=== PATIENT | male | born 1985 | race Caucasian/White ===

== ENCOUNTER 2017-04-16 20:44 | Emergency (ER) | payer OTHER ==
[~2017-04-16] VITALS: Ht 190.5 cm; Wt 117.9 kg
[~2017-04-16 20:44] MED LIST: ANAPROX DS550 MG PO; AUGMENTIN 500 M1 TAB PO; BIAXIN500 MG PO; CLINDAMYCIN150 MG PO; COMBIVENT1 ARO IH; CORDROL20 MG PO; DARVOCET N 1001 TAB PO; DAYPRO600 M1 PO; DOXYCYCLINE MO100 MG PO; FIORICET 325 MG1 TAB PO; FLEXERIL10 MG PO; HYDROCODONE BIT1 T11 PO; HYDRODIURIL25 MG PO; MEDROL DOSEPAK4 MG PO; MOTRIN800 MG PO; NAPROSYN500 MG PO; NKHM; NORCO 325 MG-51 TAB PO; PHENERGAN W/DM120 ML PO; PROVENTIL0.09 MG/AC IH; ROBAXIN750 MG PO; ROBITUSSIN AC 10 MG/ PO; SUDAFED60 MG PO; TRAMADOL HCL50 MG PO; ULTRAM50 MG PO; VIBRAMYCIN100 MG PO; VICODIN 5/500 505 MG PO; ZANTAC150 MG PO
[2017-04-16 20:52] VITALS: BP 150/95
[2017-04-16] MEDS ORDERED: HYDROCODONE BIT1 T11 PO (22:29)
[2017-04-16] MEDS ORDERED: CEPHALEXIN500 M1 PO (22:29)
== END 2017-04-16 22:47 | disposition home or self-care (01) ==
LOC: ED 20:44
DX: T25.621A Corrosion of second degree of right foot, initial encounter (principal); Z23 Encounter for immunization; F17.200 Nicotine dependence, unspecified, uncomplicated; Z88.6 Allergy status to analgesic agent; Y92.9 Unspecified place or not applicable; Y93.89 Activity, other specified; Y92.89 Other specified places as the place of occurrence of the external cause; Y99.8 Other external cause status

== ENCOUNTER → 2017-04-21 | Outpatient (CLI) | payer OTHER ==
[~2017-04-21] MED LIST changes: +CEPHALEXIN500 M1 PO
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
== END | disposition home or self-care (01) ==
LOC: WOUNDCARE 00:21
DX: T25.221D Burn of second degree of right foot, subsequent encounter (principal); F17.210 Nicotine dependence, cigarettes, uncomplicated; X08.8XXD Exposure to other specified smoke, fire and flames, subsequent encounter

== ENCOUNTER → 2017-04-28 | Outpatient (CLI) | payer OTHER ==
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
== END | disposition home or self-care (01) ==
LOC: WOUNDCARE 00:57
DX: T25.221D Burn of second degree of right foot, subsequent encounter (principal); F17.200 Nicotine dependence, unspecified, uncomplicated; T65.891D Toxic effect of other specified substances, accidental (unintentional), subsequent encounter

== ENCOUNTER → 2017-05-05 | Outpatient (CLI) | payer OTHER ==
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
== END ==
LOC: WOUNDCARE 03:42
DX: T25.221D Burn of second degree of right foot, subsequent encounter (principal); L84 Corns and callosities; X08.8XXD Exposure to other specified smoke, fire and flames, subsequent encounter

== ENCOUNTER → 2017-05-14 | Outpatient (CLI) | payer OTHER ==
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
== END | disposition home or self-care (01) ==
LOC: WOUNDCARE 01:42
DX: T25.221D Burn of second degree of right foot, subsequent encounter (principal); T31.0 Burns involving less than 10% of body surface; X08.8XXD Exposure to other specified smoke, fire and flames, subsequent encounter

== ENCOUNTER 2017-06-30 17:33 | Emergency (ER) | payer OTHER ==
[~2017-06-30] VITALS: Ht 190.5 cm; Wt 117.9 kg
[2017-06-30 17:40] VITALS: BP 159/89
== END 2017-06-30 18:40 | disposition home or self-care (01) ==
LOC: ED 17:33
DX: S80.11XA Contusion of right lower leg, initial encounter (principal); F17.200 Nicotine dependence, unspecified, uncomplicated; Z88.6 Allergy status to analgesic agent; X58.XXXA Exposure to other specified factors, initial encounter; Y93.89 Activity, other specified; Y92.89 Other specified places as the place of occurrence of the external cause; Y99.9 Unspecified external cause status

== ENCOUNTER 2017-10-31 19:23 | Emergency (ER) | payer OTHER ==
[~2017-10-31] VITALS: Ht 190.5 cm; Wt 127.0 kg
[2017-10-31 20:39] LABS: BASO # 0.1 10*3/uL (0.0-0.1); BASO % 0.5 % (0.0-1.0); EOS # 0.5 10*3/uL (0.0-0.4); EOS % 4.8 % (1.0-4.0); HEMATOCRIT 46.1 % (42.0-52.0); HEMOGLOBIN 15.6 g/dl (14.0-18.0); LYMPH # 2.6 10*3/uL (1.3-4.4); LYMPH % 26.4 % (27.0-41.0); MEAN CELL VOLUME 89.3 fl (80.0-94.0); MEAN CORPUSCULAR HGB 30.2 pg (27.0-31.0); MEAN CORPUSCULAR HGB CONC 33.8 g/dl (33.0-37.0); MEAN PLATELET VOLUME 10.1 fl (9.6-12.3); MONO % 10.1 % (3.0-9.0); NEUT # 5.6 10*3/uL (2.3-7.9); NEUT % 57.9 % (47.0-73.0); PLATELET COUNT AUTOMATED 226 10*3/uL (130-400); RED BLOOD COUNT 5.16 10*6/uL (4.50-5.90); RED CELL DISTRI WIDTH 12.9 % (0-14.5); WHITE BLOOD COUNT 9.7 10*3/uL (4.8-10.8)
[2017-10-31 20:56] LABS: ALBUMIN 3.6 gm/dl (3.1-4.5); ALKALINE PHOSPHATASE 60 U/L (45-117); BUN 9 mg/dl (7-24); CHLORIDE 105 mmol/L (98-107); CREATININE 0.87 mg/dL (0.70-1.30); POTASSIUM 4.1 mmol/L (3.5-5.1); SGOT/AST 22 IU/L (3-35); SGPT/ALT 36 U/L (12-78); SODIUM 140 mmol/L (136-145); TOTAL PROTEIN 7.2 gm/dL (6.4-8.2)
[2017-10-31 20:57] LABS: BILIRUBIN NEGATIVE (NEGATIVE); BLOOD NEGATIVE (NEGATIVE); CLARITY CLEAR (CLEAR); COLOR YELLOW (YELLOW); GLUCOSE NEGATIVE (NEGATIVE); KETONE NEGATIVE (NEGATIVE); LEUKO ESTERASE NEGATIVE (NEGATIVE); NITRITE NEGATIVE (NEGATIVE); PH 6.5 (5.0-9.0); SPECIFIC GRAVITY 1.015 (1.005-1.030); UROBILINOGEN 0.2 E.U./dl (0.2-1.0)
[2017-10-31 21:13] LABS: EPITHELIAL CELLS 0-2
[2017-10-31] MEDS ORDERED: Nystatin Cream15 GM T (21:53)
[2017-10-31] MEDS ORDERED: FLUCONAZOLE100 MG PO (21:53)
[2017-10-31 22:00] VITALS: BP 149/83
== END 2017-10-31 21:57 | disposition home or self-care (01) ==
LOC: ED 19:23
PROVIDERS: Family Medicine
DX: B35.3 Tinea pedis (principal); B35.4 Tinea corporis; M25.571 Pain in right ankle and joints of right foot; F17.200 Nicotine dependence, unspecified, uncomplicated; Z88.6 Allergy status to analgesic agent

== ENCOUNTER 2017-12-14 15:08 | Emergency (ER) | payer OTHER ==
[~2017-12-14] VITALS: Ht 190.5 cm; Wt 131.5 kg
[~2017-12-14 15:08] MED LIST changes: +FLUCONAZOLE100 MG PO; +Nystatin Cream15 GM T
[2017-12-14 15:13] VITALS: BP 150/98
[2017-12-14] MEDS ORDERED: CYCLOBENZAPRINE5 M3 PO (16:42)
[2017-12-14] MEDS ORDERED: MEDROL DOSEPAK4 MG PO (16:42)
== END 2017-12-14 16:49 | disposition home or self-care (01) ==
LOC: ED
DX: S29.012A Strain of muscle and tendon of back wall of thorax, initial encounter (principal); F17.200 Nicotine dependence, unspecified, uncomplicated; Z79.899 Other long term (current) drug therapy; Z88.6 Allergy status to analgesic agent; X50.1XXA Overexertion from prolonged static or awkward postures, initial encounter; Y93.89 Activity, other specified; Y92.89 Other specified places as the place of occurrence of the external cause; Y99.9 Unspecified external cause status

== ENCOUNTER 2018-08-07 00:53 | Emergency (ER) | payer OTHER ==
[~2018-08-07] VITALS: Ht 190.5 cm; Wt 140.6 kg
[2018-08-07 00:53] VITALS: BP 161/82
[~2018-08-07 00:53] MED LIST changes: +CYCLOBENZAPRINE5 M3 PO
== END 2018-08-07 01:24 | disposition home or self-care (01) ==
LOC: ED 00:53
DX: H57.89 Other specified disorders of eye and adnexa (principal); H57.12 Ocular pain, left eye; H53.8 Other visual disturbances; Z88.8 Allergy status to other drugs, medicaments and biological substances

== ENCOUNTER 2018-12-04 15:55 | Emergency (ER) | payer SELFPAY ==
[~2018-12-04] VITALS: Wt 140.6 kg
--- NOTE | ~2018-12-04 | EKG ---
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
[2018-12-04 15:56] VITALS: BP 156/98
[2018-12-04 16:58] LABS: BASO # 0.1 10*3/uL (0.0-0.1); BASO % 0.6 % (0.0-1.0); EOS # 0.3 10*3/uL (0.0-0.4); EOS % 2.7 % (1.0-4.0); HEMATOCRIT 50.2 % (42.0-52.0); HEMOGLOBIN 16.9 g/dl (14.0-18.0); LYMPH % 18.1 % (27.0-41.0); MEAN CELL VOLUME 89.2 fl (80.0-94.0); MEAN CORPUSCULAR HGB CONC 33.7 g/dl (33.0-37.0); MEAN PLATELET VOLUME 9.9 fl (9.6-12.3); MONO % 9.5 % (3.0-9.0); NEUT # 7.5 10*3/uL (2.3-7.9); NEUT % 68.8 % (47.0-73.0); PLATELET COUNT AUTOMATED 223 10*3/uL (130-400); RED BLOOD COUNT 5.63 10*6/uL (4.50-5.90); RED CELL DISTRI WIDTH 12.7 % (0-14.5); WHITE BLOOD COUNT 10.8 10*3/uL (4.8-10.8)
[2018-12-04 17:07] LABS: ACT PARTIAL THROMBO TIME 23.8 SECONDS (20.8-31.5); INTERNATIONAL NORM RATIO 0.9 (2.0-3.5)
[2018-12-04 17:12] LABS: ALBUMIN 3.8 gm/dl (3.1-4.5); ALKALINE PHOSPHATASE 64 U/L (45-117); BUN 10 mg/dl (7-24); CHLORIDE 107 mmol/L (98-107); CREATININE 0.95 mg/dL (0.70-1.30); POTASSIUM 4.1 mmol/L (3.5-5.1); SGOT/AST 27 IU/L (3-35); SGPT/ALT 43 U/L (12-78); SODIUM 141 mmol/L (136-145); TOTAL PROTEIN 7.7 gm/dL (6.4-8.2)
[2018-12-04 17:30] LABS: BILIRUBIN NEGATIVE (NEGATIVE); BLOOD NEGATIVE (NEGATIVE); CLARITY CLEAR (CLEAR); COLOR YELLOW (YELLOW); GLUCOSE NEGATIVE (NEGATIVE); KETONE NEGATIVE (NEGATIVE); LEUKO ESTERASE NEGATIVE (NEGATIVE); NITRITE NEGATIVE (NEGATIVE); SPECIFIC GRAVITY 1.015 (1.005-1.030); UROBILINOGEN 0.2 E.U./dl (0.2-1.0)
[2018-12-04 17:53] LABS: BACTERIA 1+; EPITHELIAL CELLS 0-2; RBC 0-2 rbc/hpf (0-2)
[2018-12-04 17:54] LABS: MUCOUS TRACE
[2018-12-04] MEDS ORDERED: PERCOCET 10-321 EACH PO (19:26)
[2018-12-04] MEDS ORDERED: CYCLOBENZAPRINE5 M3 PO (19:26)
[2019-03-25] MEDS ORDERED: MEDROL DOSEPAK4 MG PO (16:50)
[2019-03-25] MEDS ORDERED: ROBAXIN500 M1 PO (16:50)
== END 2018-12-04 19:37 | disposition home or self-care (01) ==
LOC: ED 15:55
PROVIDERS: Nurse Practitioner
DX: S47.2XXA Crushing injury of left shoulder and upper arm, initial encounter (principal); S40.212A Abrasion of left shoulder, initial encounter; S40.812A Abrasion of left upper arm, initial encounter; R07.89 Other chest pain; M54.6 Pain in thoracic spine; F17.200 Nicotine dependence, unspecified, uncomplicated; Z88.6 Allergy status to analgesic agent; Z79.899 Other long term (current) drug therapy; W20.8XXA Other cause of strike by thrown, projected or falling object, initial encounter; Y93.89 Activity, other specified; Y92.098 Other place in other non-institutional residence as the place of occurrence of the external cause; Y99.8 Other external cause status

== ENCOUNTER 2019-08-15 18:40 | Emergency (ER) | payer OTHER ==
[~2019-08-15] VITALS: Ht 190.5 cm; Wt 136.1 kg
[~2019-08-15 18:40] MED LIST changes: +PERCOCET 10-321 EACH PO; +ROBAXIN500 M1 PO
[2019-08-15] MEDS ORDERED: PROPRANOLOL HCL60 M1 PO (18:44)
[2019-08-15] MEDS ORDERED: SERTRALINE HYD100 MG PO (18:44)
[2019-08-15 18:45] VITALS: BP 146/83
== END 2019-08-15 21:54 | disposition home or self-care (01) ==
LOC: ED 18:40
DX: M54.5 Low back pain (principal); I10 Essential (primary) hypertension; F17.200 Nicotine dependence, unspecified, uncomplicated; Z79.899 Other long term (current) drug therapy; Z88.6 Allergy status to analgesic agent; W22.8XXA Striking against or struck by other objects, initial encounter; Y93.89 Activity, other specified; Y92.89 Other specified places as the place of occurrence of the external cause; Y99.0 Civilian activity done for income or pay

== ENCOUNTER 2019-11-16 20:31 | Emergency (ER) | payer OTHER ==
[~2019-11-16] VITALS: Ht 190.5 cm; Wt 138.3 kg
[~2019-11-16 20:31] MED LIST changes: +PROPRANOLOL HCL60 M1 PO; +SERTRALINE HYD100 MG PO
[2019-11-16 20:35] VITALS: BP 152/91
[2019-11-16 21:11] LABS: BASO % 0.5 % (0.0-1.0); EOS # 0.5 10*3/uL (0.0-0.4); EOS % 8.2 % (1.0-4.0); HEMATOCRIT 44.7 % (42.0-52.0); LYMPH # 1.7 10*3/uL (1.3-4.4); LYMPH % 29.7 % (27.0-41.0); MEAN CELL VOLUME 89.6 fl (80.0-94.0); MEAN CORPUSCULAR HGB 30.1 pg (27.0-31.0); MEAN CORPUSCULAR HGB CONC 33.6 g/dl (33.0-37.0); MEAN PLATELET VOLUME 9.4 fl (9.6-12.3); MONO # 0.6 10*3/uL (0.1-1.0); MONO % 11.1 % (3.0-9.0); NEUT # 2.9 10*3/uL (2.3-7.9); NEUT % 50.3 % (47.0-73.0); PLATELET COUNT AUTOMATED 179 10*3/uL (130-400); RED BLOOD COUNT 4.99 10*6/uL (4.50-5.90); WHITE BLOOD COUNT 5.8 10*3/uL (4.8-10.8)
[2019-11-16 21:20] LABS: BILIRUBIN NEGATIVE (NEGATIVE); BLOOD NEGATIVE (NEGATIVE); CLARITY CLEAR (CLEAR); COLOR YELLOW (YELLOW); GLUCOSE NEGATIVE (NEGATIVE); KETONE NEGATIVE (NEGATIVE); LEUKO ESTERASE NEGATIVE (NEGATIVE); NITRITE NEGATIVE (NEGATIVE); UROBILINOGEN 0.2 E.U./dl (0.2-1.0)
[2019-11-16 21:29] LABS: ALBUMIN 3.2 gm/dl (3.1-4.5); ALKALINE PHOSPHATASE 51 U/L (45-117); BUN 10 mg/dl (7-24); CHLORIDE 106 mmol/L (98-107); CREATININE 0.94 mg/dL (0.70-1.30); POTASSIUM 3.7 mmol/L (3.5-5.1); SGOT/AST 30 IU/L (3-35); SGPT/ALT 42 U/L (12-78); SODIUM 138 mmol/L (136-145); TOTAL PROTEIN 7.3 gm/dL (6.4-8.2)
[2019-11-16 21:31] LABS: BACTERIA TRACE; MUCOUS TRACE
[2019-11-16] MEDS ORDERED: ZOFRAN4 MG PO (21:53)
== END 2019-11-16 21:45 | disposition home or self-care (01) ==
LOC: ED 20:31
PROVIDERS: Nurse Practitioner Family
DX: A08.4 Viral intestinal infection, unspecified (principal); I10 Essential (primary) hypertension; F41.9 Anxiety disorder, unspecified; F17.200 Nicotine dependence, unspecified, uncomplicated; Z79.899 Other long term (current) drug therapy

== ENCOUNTER → 2020-11-03 | Outpatient (CLI) | payer OTHER ==
[~2020-11-03] MED LIST changes: +ZOFRAN4 MG PO
[2020-11-03 15:41] LABS: BASO # 0.1 10*3/uL (0.0-0.1); BASO % 0.7 % (0.0-1.0); EOS # 0.4 10*3/uL (0.0-0.4); EOS % 3.8 % (1.0-4.0); HEMATOCRIT 48.4 % (42.0-52.0); LYMPH # 1.9 10*3/uL (1.3-4.4); LYMPH % 19.7 % (27.0-41.0); MEAN CELL VOLUME 92.7 fl (80.0-94.0); MEAN CORPUSCULAR HGB 30.5 pg (27.0-31.0); MEAN CORPUSCULAR HGB CONC 32.9 g/dl (33.0-37.0); MONO # 1.1 10*3/uL (0.1-1.0); MONO % 11.5 % (3.0-9.0); NEUT # 6.1 10*3/uL (2.3-7.9); PLATELET COUNT AUTOMATED 225 10*3/uL (130-400); RED BLOOD COUNT 5.22 10*6/uL (4.50-5.90); RED CELL DISTRI WIDTH 12.9 % (0-14.5); WHITE BLOOD COUNT 9.5 10*3/uL (4.8-10.8)
[2020-11-03 16:11] LABS: ALBUMIN 3.4 gm/dl (3.1-4.5); ALKALINE PHOSPHATASE 62 U/L (45-117); BUN 8 mg/dl (7-24); CHLORIDE 110 mmol/L (98-107); CHOLESTEROL 144 mg/dL (<200); CREATININE 0.88 mg/dL (0.70-1.30); FREE T4 0.88 ng/dl (0.76-1.46); HDL CHOLESTEROL 33 mg/dl (40-60); LDL CHOLESTEROL 64 mg/dL (9-159); POTASSIUM 4.5 mmol/L (3.5-5.1); SGOT/AST 28 IU/L (3-35); SGPT/ALT 47 U/L (12-78); SODIUM 139 mmol/L (136-145); TOTAL PROTEIN 7.5 gm/dL (6.4-8.2); TRIGLYCERIDES 234 mg/dl (<150); VLDL CHOLESTEROL 47 mg/dL (6-40)
[2020-11-03 16:57] LABS: VITAMIN D, 25-HYDROXY 9.6 ng/mL (30-100)
== END | disposition home or self-care (01) ==
LOC: LAB 15:06
PROVIDERS: ATTEND Internal Medicine
DX: Z00.00 Encounter for general adult medical examination without abnormal findings (principal); I10 Essential (primary) hypertension; E55.9 Vitamin D deficiency, unspecified; Z13.1 Encounter for screening for diabetes mellitus; Z13.220 Encounter for screening for lipoid disorders; Z13.21 Encounter for screening for nutritional disorder

== ENCOUNTER 2021-03-09 21:55 | Emergency (ER) | payer OTHER ==
[~2021-03-09] VITALS: Ht 190.5 cm; Wt 156.5 kg
[2021-03-09 22:20] VITALS: BP 172/105
[2021-03-09 22:43] LABS: BASO # 0.1 10*3/uL (0.0-0.1); BASO % 0.5 % (0.0-1.0); EOS # 0.3 10*3/uL (0.0-0.4); EOS % 3.2 % (1.0-4.0); HEMATOCRIT 46.6 % (42.0-52.0); LYMPH # 2.4 10*3/uL (1.3-4.4); LYMPH % 22.6 % (27.0-41.0); MEAN CELL VOLUME 91.6 fl (80.0-94.0); MEAN CORPUSCULAR HGB 30.5 pg (27.0-31.0); MEAN CORPUSCULAR HGB CONC 33.3 g/dl (33.0-37.0); MEAN PLATELET VOLUME 9.6 fl (9.6-12.3); MONO # 1.2 10*3/uL (0.1-1.0); MONO % 10.9 % (3.0-9.0); NEUT # 6.7 10*3/uL (2.3-7.9); NEUT % 62.4 % (47.0-73.0); PLATELET COUNT AUTOMATED 242 10*3/uL (130-400); RED BLOOD COUNT 5.09 10*6/uL (4.50-5.90); RED CELL DISTRI WIDTH 12.9 % (0-14.5); WHITE BLOOD COUNT 10.8 10*3/uL (4.8-10.8)
[2021-03-09 22:59] LABS: ALBUMIN 3.4 gm/dl (3.1-4.5); ALKALINE PHOSPHATASE 54 U/L (45-117); BUN 13 mg/dl (7-24); CHLORIDE 110 mmol/L (98-107); CREATININE 0.83 mg/dL (0.70-1.30); LIPASE 117 U/L (73-393); POTASSIUM 3.9 mmol/L (3.5-5.1); SGOT/AST 22 IU/L (3-35); SGPT/ALT 50 U/L (12-78); SODIUM 138 mmol/L (136-145); TOTAL PROTEIN 7.1 gm/dL (6.4-8.2)
[2021-03-09] MEDS ORDERED: NAPROSYN500 MG PO (23:25)
== END 2021-03-10 00:11 | disposition home or self-care (01) ==
LOC: ED 21:55
PROVIDERS: Internal Medicine
DX: R10.30 Lower abdominal pain, unspecified (principal); Z88.6 Allergy status to analgesic agent; Z79.899 Other long term (current) drug therapy

== ENCOUNTER 2021-06-08 12:16 | Emergency (ER) | payer OTHER ==
[~2021-06-08] VITALS: Wt 147.9 kg
[2021-06-08 12:25] VITALS: BP 164/100
[2021-06-08] MEDS ORDERED: CYCLOBENZAPRINE10 MG PO (15:32)
[2021-06-08] MEDS ORDERED: PREDNISONE50 MG PO (15:32)
== END 2021-06-08 15:38 | disposition home or self-care (01) ==
LOC: ED 12:16
DX: S43.401A Unspecified sprain of right shoulder joint, initial encounter (principal); Z88.6 Allergy status to analgesic agent; Z79.899 Other long term (current) drug therapy; X50.0XXA Overexertion from strenuous movement or load, initial encounter; Y93.89 Activity, other specified; Y92.89 Other specified places as the place of occurrence of the external cause; Y99.8 Other external cause status

== ENCOUNTER 2022-01-10 22:14 | Emergency (ER) | payer OTHER ==
[~2022-01-10] VITALS: Ht 187.9 cm; Wt 145.1 kg
[~2022-01-10 22:14] MED LIST changes: +CYCLOBENZAPRINE10 MG PO; +PREDNISONE50 MG PO
[2022-01-10 22:27] VITALS: BP 154/100
[2022-01-10] MEDS ORDERED: HYDROCODON-ACE1 EACH PO (22:58)
== END 2022-01-10 23:10 | disposition home or self-care (01) ==
LOC: ED 22:14
DX: M25.561 Pain in right knee (principal); Z88.6 Allergy status to analgesic agent

== ENCOUNTER 2022-10-31 18:17 | Emergency (ER) | payer OTHER ==
[~2022-10-31] VITALS: Wt 127.0 kg
[~2022-10-31 18:17] MED LIST changes: +HYDROCODON-ACE1 EACH PO
[2022-10-31 18:30] VITALS: BP 146/88
[2022-10-31] MEDS ORDERED: HYDROCODONE-AC1 EAC1 PO (20:05)
[2022-10-31] MEDS ORDERED: Percocet 325 MG1 TAB PO (20:16)
== END 2022-10-31 20:33 | disposition home or self-care (01) ==
LOC: ED 18:17
DX: M25.462 Effusion, left knee (principal); F41.9 Anxiety disorder, unspecified; I10 Essential (primary) hypertension; Z88.8 Allergy status to other drugs, medicaments and biological substances; Z98.890 Other specified postprocedural states

== ENCOUNTER 2022-11-12 22:08 | Emergency (ER) | payer OTHER ==
[~2022-11-12] VITALS: Ht 182.8 cm; Wt 115.7 kg
[~2022-11-12 22:08] MED LIST changes: -PERCOCET 5-3251 EACH PO
[2022-11-12 22:14] VITALS: BP 192/91
[2022-11-12] MEDS ORDERED: PERCOCET 5-3251 EACH PO (22:28)
== END 2022-11-12 22:46 | disposition home or self-care (01) ==
LOC: ED
DX: S82.202A Unspecified fracture of shaft of left tibia, initial encounter for closed fracture (principal); M25.562 Pain in left knee; I10 Essential (primary) hypertension; F41.9 Anxiety disorder, unspecified; Z88.8 Allergy status to other drugs, medicaments and biological substances; Z98.890 Other specified postprocedural states; X58.XXXA Exposure to other specified factors, initial encounter; Y93.89 Activity, other specified; Y92.89 Other specified places as the place of occurrence of the external cause; Y99.8 Other external cause status

== ENCOUNTER → 2022-11-12 | Outpatient (CLI) | payer OTHER ==
[~2022-11-12] MED LIST changes: +HYDROCODONE-AC1 EAC1 PO; +PERCOCET 5-3251 EACH PO; +Percocet 325 MG1 TAB PO
== END | disposition home or self-care (01) ==
LOC: MRI 10:42
PROVIDERS: ATTEND Orthopaedic Surgery
DX: S82.122A Displaced fracture of lateral condyle of left tibia, initial encounter for closed fracture (principal); S83.512A Sprain of anterior cruciate ligament of left knee, initial encounter; M25.462 Effusion, left knee; M65.862 Other synovitis and tenosynovitis, left lower leg; M71.22 Synovial cyst of popliteal space [Baker], left knee; M79.89 Other specified soft tissue disorders; X58.XXXA Exposure to other specified factors, initial encounter; Y93.89 Activity, other specified; Y92.89 Other specified places as the place of occurrence of the external cause; Y99.8 Other external cause status

== ENCOUNTER 2022-11-29 23:04 | Emergency (ER) | payer OTHER ==
[~2022-11-29] VITALS: Ht 187.9 cm; Wt 145.1 kg
[~2022-11-29 23:04] MED LIST changes: +PERCOCET 5-3251 EACH PO
[2022-11-29 23:28] VITALS: BP 183/99
[2022-11-30] MEDS ORDERED: PREDNISONE20 M1 PO (01:13)
== END 2022-11-30 01:17 | disposition home or self-care (01) ==
LOC: ED 23:04
DX: M25.562 Pain in left knee (principal); Z88.6 Allergy status to analgesic agent

== ENCOUNTER → 2023-07-04 | Outpatient (CLI) | payer OTHER ==
[~2023-07-04] MED LIST changes: +PREDNISONE20 M1 PO
[2023-07-04 15:08] LABS: BASO # 0.1 10*3/uL (0.0-0.1); BASO % 0.8 % (0.0-1.0); EOS # 0.2 10*3/uL (0.0-0.4); EOS % 2.9 % (1.0-4.0); HEMATOCRIT 47.5 % (42.0-52.0); LYMPH # 1.7 10*3/uL (1.3-4.4); LYMPH % 25.2 % (27.0-41.0); MEAN CELL VOLUME 89.5 fl (80.0-94.0); MEAN CORPUSCULAR HGB 30.5 pg (27.0-31.0); MEAN CORPUSCULAR HGB CONC 34.1 g/dl (33.0-37.0); MEAN PLATELET VOLUME 9.7 fl (9.6-12.3); MONO # 0.5 10*3/uL (0.1-1.0); MONO % 7.3 % (3.0-9.0); NEUT # 4.2 10*3/uL (2.3-7.9); NEUT % 63.5 % (47.0-73.0); PLATELET COUNT AUTOMATED 211 10*3/uL (130-400); RED BLOOD COUNT 5.31 10*6/uL (4.50-5.90); RED CELL DISTRI WIDTH 12.7 % (0-14.5); WHITE BLOOD COUNT 6.6 10*3/uL (4.8-10.8)
[2023-07-04 15:36] LABS: ALKALINE PHOSPHATASE 57 U/L (46-116); BUN 10 mg/dl (9-23); CHLORIDE 107 mmol/L (98-107); CHOLESTEROL 142 mg/dL (<200); CPK 362 U/L (34-171); FREE T4 0.93 ng/dl (0.89-1.76); LDL CHOLESTEROL 84 mg/dL (9-159); POTASSIUM 4.2 mmol/L (3.4-5.1); SGPT/ALT 50 U/L (5-49); TOTAL PROTEIN 7.2 gm/dL (6.0-8.0); TRIGLYCERIDES 130 mg/dl (<150); VITAMIN D, 25-HYDROXY 25.8 ng/mL (30-100)
== END | disposition home or self-care (01) ==
LOC: LAB 14:46
PROVIDERS: ATTEND Internal Medicine
DX: Z13.0 Encounter for screening for diseases of the blood and blood-forming organs and certain disorders involving the immune mechanism (principal); Z13.1 Encounter for screening for diabetes mellitus; Z13.21 Encounter for screening for nutritional disorder; Z13.220 Encounter for screening for lipoid disorders; Z13.228 Encounter for screening for other metabolic disorders; Z13.29 Encounter for screening for other suspected endocrine disorder; Z13.6 Encounter for screening for cardiovascular disorders; Z13.89 Encounter for screening for other disorder; Z13.9 Encounter for screening, unspecified; I10 Essential (primary) hypertension; G25.81 Restless legs syndrome; E55.9 Vitamin D deficiency, unspecified; M54.50 Low back pain, unspecified; Z12.5 Encounter for screening for malignant neoplasm of prostate; R53.83 Other fatigue; R73.9 Hyperglycemia, unspecified

== ENCOUNTER 2024-03-29 14:41 | Emergency (ER) | payer OTHER ==
[~2024-03-29] VITALS: Ht 187.9 cm; Wt 145.1 kg
[2024-03-29 15:05] VITALS: BP 154/96
[2024-03-29] MEDS ORDERED: Acetaminophen/Hydrocodone 5 MG/325 MG TABLET PO ONE (15:15)
[2024-03-29] MEDS ORDERED: methylPREDNISolone sod succ 125 MG VIAL IM ONE (16:35)
[2024-03-29] MEDS ORDERED: PREDNISONE20 M1 PO (16:35)
== END 2024-03-29 16:39 | disposition home or self-care (01) ==
LOC: ED 14:41
DX: S99.921A Unspecified injury of right foot, initial encounter (principal); R60.0 Localized edema; F41.9 Anxiety disorder, unspecified; I10 Essential (primary) hypertension; Z88.6 Allergy status to analgesic agent; Z98.890 Other specified postprocedural states; X58.XXXA Exposure to other specified factors, initial encounter; Y93.89 Activity, other specified; Y92.89 Other specified places as the place of occurrence of the external cause; Y99.8 Other external cause status

== ENCOUNTER 2025-05-16 15:04 | Emergency (ER) | payer OTHER ==
[~2025-05-16] VITALS: Ht 187.9 cm; Wt 151.0 kg
[2025-05-16 15:20] VITALS: BP 156/91
[2025-05-16] MEDS ORDERED: SODIUM CHLORIDE 0.9% 1,000 ML IV ONE (15:50)
[2025-05-16] MEDS ORDERED: diphenhydrAMINE hydrochloride 50 MG/ML VIAL IV ONE (15:50)
[2025-05-16] MEDS ORDERED: Ondansetron Hydrochloride 4 MG/2 ML VIAL IV ONE (15:50)
[2025-05-16 16:20] LABS: BASO # 0.1 10*3/uL (0.0-0.1); BASO % 1.1 % (0.0-1.0); EOS # 0.3 10*3/uL (0.0-0.4); EOS % 4.2 % (1.0-4.0); MEAN CELL VOLUME 87.5 fl (80.0-94.0); MEAN CORPUSCULAR HGB 30.1 pg (27.0-31.0); MEAN PLATELET VOLUME 9.8 fl (9.6-12.3); MONO # 0.5 10*3/uL (0.1-1.0); MONO % 8.0 % (3.0-9.0); NEUT # 3.9 10*3/uL (2.3-7.9); NEUT % 58.7 % (47.0-73.0); NUCLEATED RED BLOOD CELL 0.0 % (0.0-0.0); NUCLEATED RED BLOOD CELL 0.0 10*3/uL (0.0-0.0); PLATELET COUNT AUTOMATED 249 10*3/uL (130-400); RED CELL DISTRI WIDTH 12.6 % (0-14.5)
[2025-05-16 16:48] LABS: BUN 9 mg/dl (9-23)
[2025-05-16] MEDS ORDERED: ACETAMINOPHEN 100 ML IV ONE (18:45)
[2025-05-16] MEDS ORDERED: Dexamethasone Sodium Phospha 10 MG/1 ML VIAL IV ONE (20:35)
== END 2025-05-16 21:13 | disposition home or self-care (01) ==
LOC: ED 15:04
PROVIDERS: Nurse Practitioner Family
DX: R07.1 Chest pain on breathing (principal); I10 Essential (primary) hypertension; G43.909 Migraine, unspecified, not intractable, without status migrainosus; Z88.6 Allergy status to analgesic agent; Z98.890 Other specified postprocedural states

== ENCOUNTER → 2025-05-24 | Outpatient (CLI) | payer OTHER ==
[2025-05-24 16:05] LABS: BASO # 0.1 10*3/uL (0.0-0.1); BASO % 0.7 % (0.0-1.0); EOS # 0.2 10*3/uL (0.0-0.4); EOS % 2.9 % (1.0-4.0); MEAN CELL VOLUME 87.3 fl (80.0-94.0); MEAN CORPUSCULAR HGB 29.8 pg (27.0-31.0); MEAN PLATELET VOLUME 9.6 fl (9.6-12.3); MONO # 0.5 10*3/uL (0.1-1.0); MONO % 5.9 % (3.0-9.0); NEUT # 4.8 10*3/uL (2.3-7.9); NEUT % 61.9 % (47.0-73.0); NUCLEATED RED BLOOD CELL 0.0 % (0.0-0.0); NUCLEATED RED BLOOD CELL 0.0 10*3/uL (0.0-0.0); PLATELET COUNT AUTOMATED 218 10*3/uL (130-400); RED CELL DISTRI WIDTH 12.8 % (0-14.5)
[2025-05-24 17:02] LABS: BUN 8 mg/dl (9-23); FREE T4 0.92 ng/dl (0.89-1.76); LDL CHOLESTEROL 103 mg/dL (9-159); SGPT/ALT 43 U/L (5-49); VITAMIN D, 25-HYDROXY 26.6 ng/mL (30-100)
== END | disposition home or self-care (01) ==
LOC: LAB 15:50
PROVIDERS: ATTEND Internal Medicine
DX: I10 Essential (primary) hypertension (principal); E55.9 Vitamin D deficiency, unspecified; E53.9 Vitamin B deficiency, unspecified; R79.82 Elevated C-reactive protein (CRP); R53.83 Other fatigue; F17.210 Nicotine dependence, cigarettes, uncomplicated

== ENCOUNTER 2025-06-21 22:13 | Emergency (ER) | payer OTHER ==
[~2025-06-21] VITALS: Ht 213.3 cm; Wt 158.8 kg
[2025-06-21 22:32] VITALS: BP 157/87
[2025-06-21] MEDS ORDERED: Acetaminophen/Hydrocodone 5 MG/325 MG TABLET PO ONE (22:40)
[2025-06-21] MEDS ORDERED: HYDROCODONE-AC1 EAC1 PO (23:30)
== END 2025-06-21 23:41 | disposition home or self-care (01) ==
LOC: ED 22:13
DX: M25.562 Pain in left knee (principal); I10 Essential (primary) hypertension; F41.9 Anxiety disorder, unspecified; E11.9 Type 2 diabetes mellitus without complications; Z88.6 Allergy status to analgesic agent; Z87.19 Personal history of other diseases of the digestive system

== ENCOUNTER 2025-08-23 00:23 | Emergency (ER) | payer OTHER ==
[~2025-08-23] VITALS: Ht 190.5 cm; Wt 149.7 kg
[2025-08-23 00:38] VITALS: BP 158/78
[2025-08-23] MEDS ORDERED: ACETAMINOPHEN 325 MG TAB PO ONE (01:00)
== END 2025-08-23 02:55 | disposition home or self-care (01) ==
LOC: ED 00:23
DX: S60.221A Contusion of right hand, initial encounter (principal); F41.9 Anxiety disorder, unspecified; I10 Essential (primary) hypertension; E11.9 Type 2 diabetes mellitus without complications; Z87.19 Personal history of other diseases of the digestive system; Z88.6 Allergy status to analgesic agent; W23.0XXA Caught, crushed, jammed, or pinched between moving objects, initial encounter; Y93.89 Activity, other specified; Y92.89 Other specified places as the place of occurrence of the external cause; Y99.8 Other external cause status